=== PATIENT | male | born 1945 | race Caucasian/White ===

== ENCOUNTER → 2024-08-20 | Outpatient (CLI) | payer OTHER | LOC: M SOG 07:50 | PROVIDERS: ATTEND Orthopaedic Surgery | DX: M54.50 Low back pain, unspecified (principal); M51.369 Other intervertebral disc degeneration, lumbar region without mention of lumbar back pain or lower extremity pain ==

== ENCOUNTER → 2024-09-12 | Outpatient (CLI) | payer OTHER | LOC: M RAD 07:42 | PROVIDERS: ATTEND Orthopaedic Surgery | DX: M47.816 Spondylosis without myelopathy or radiculopathy, lumbar region (principal); M54.50 Low back pain, unspecified; M43.10 Spondylolisthesis, site unspecified ==

== ENCOUNTER → 2024-09-19 | Outpatient (CLI) | payer OTHER | LOC: M SOG 07:55 | PROVIDERS: ATTEND Physician Assistant | DX: M25.512 Pain in left shoulder (principal); Z53.9 Procedure and treatment not carried out, unspecified reason ==

== ENCOUNTER → 2024-09-25 | Outpatient (CLI) | payer OTHER | LOC: M SOG 07:56 | PROVIDERS: ATTEND Physician Assistant | DX: M25.512 Pain in left shoulder (principal) ==

== ENCOUNTER 2025-08-12 13:57 | Emergency (ER) | payer OTHER ==
[~2025-08-12] VITALS: Ht 160 cm; Wt 89.1 kg
[2025-08-12 14:09] VITALS: TEMP 97.1
[2025-08-12] MEDS ORDERED: FINA5TAB2 PO (15:00)
[2025-08-12] MEDS ORDERED: EZET10TA57 PO (15:00)
[2025-08-12] MEDS ORDERED: PARO40TA2 PO (15:00)
[2025-08-12] MEDS ORDERED: TERA10CA3 PO (15:00)
[2025-08-12] MEDS ORDERED: OMEP-173 PO (15:00)
[2025-08-12] MEDS ORDERED: PRAV40TA85 PO (15:00)
[2025-08-12] MEDS ORDERED: JARD1TAB3 PO (15:00)
[2025-08-12] MEDS ORDERED: OXYC-517 PO (15:00)
[2025-08-12] MEDS ORDERED: LISI20TA35 PO (15:00)
[2025-08-12] MEDS ORDERED: ASPI81TA26 PO (15:00)
[2025-08-12] MEDS ORDERED: GI COCKTAIL 50 ML BTL(HYOSCYAMINE/MAALOX/LIDOCAINE VISCOUS)(1:3:1) PO ONE (15:05)
[2025-08-12] MEDS ORDERED: HOME MED LIST COMPLETE! XX SCH (15:05)
[2025-08-12] MEDS: PANTOPRAZOLE 40MG VIAL IV ONE (15:30)
[2025-08-12] MEDS: ASPIRIN 81 MG CHEWABLE TABLET PO ONE (15:30)
[2025-08-12 15:37] LABS: BASO # 0.0 10^3/uL (0.0-0.2); BASO % 0.2 % (0.0-1.0); EOS # 0.1 10^3/uL (0.0-0.5); EOS % 0.5 % (0.0-3.0); LYMPH # 1.5 10^3/uL (1.5-5.0); LYMPH % 16.0 % (24.0-44.0); MONO # 0.8 10^3/uL (0.0-0.8); MONO % 8.6 % (2.0-8.0); NEUTROPHILS # 6.8 10^3/uL (1.5-8.5); NEUTROPHILS % 74.5 % (36.0-66.0); PLATELET COUNT, AUTOMATED 158 10^3/uL (150-450)
[2025-08-12 15:53] LABS: ALT/SGPT 17 U/L (7.0-40); AST/SGOT 53 U/L (<34); CALCIUM LEVEL 8.9 MG/DL (8.3-10.6); CARBON DIOXIDE LEVEL 25 MMOL/L (20-31); CHLORIDE LEVEL 102 MMOL/L (98-107); CK-MB VALUE MASS 7.6 NG/ML (<3.6); CPK CREATINE PHOSPHOKINASE 306 U/L (46-171); CREATININE FOR GFR 0.81 MG/DL (0.70-1.30); GLOMERULAR FILTRATION RATE > 90.0 (>42); MB/CK RELATIVE INDEX 2.48 (< OR =4); POTASSIUM SERUM 4.5 MMOL/L (3.5-5.1); SODIUM LEVEL 138 MMOL/L (136-145)
[2025-08-12] MEDS ORDERED: ISOVUE-370 76% 100 ML VIAL As Ordered ONE (15:56)
[2025-08-12 17:08] LABS: CK-MB VALUE MASS 7.4 NG/ML (<3.6)
[2025-08-12 17:10] LABS: CPK CREATINE PHOSPHOKINASE 281.0 U/L (46-171); MB/CK RELATIVE INDEX 2.63 (< OR =4)
[2025-08-12 17:12] VITALS: O2SAT 96
[2025-08-12 17:16] VITALS: BP 109/53
== END 2025-08-12 18:09 | disposition left against medical advice (07) ==
LOC: EDBD 13:57 → M ED 13:57
DX: R07.9 Chest pain, unspecified (principal); M43.12 Spondylolisthesis, cervical region; M50.31 Other cervical disc degeneration, high cervical region; I44.0 Atrioventricular block, first degree; E11.9 Type 2 diabetes mellitus without complications; K21.9 Gastro-esophageal reflux disease without esophagitis; I10 Essential (primary) hypertension; E78.5 Hyperlipidemia, unspecified; F43.10 Post-traumatic stress disorder, unspecified; F17.200 Nicotine dependence, unspecified, uncomplicated; Z79.82 Long term (current) use of aspirin; Z79.899 Other long term (current) drug therapy; Z53.9 Procedure and treatment not carried out, unspecified reason
CPT/HCPCS: 70450; 71045; 71275; 72125; 74177; 80048; 80076; 82550; 82553; 84484; 85025; 93005; 93041; 94760; 96374; 99285; J2470; Q9967

== ENCOUNTER 2025-08-12 18:30 | Emergency (ER) | payer OTHER ==
[~2025-08-12 18:30] MED LIST: ASPI81TA26 PO; EZET10TA57 PO; FINA5TAB2 PO; JARD1TAB3 PO; LISI20TA35 PO; OMEP-173 PO; OXYC-517 PO; PARO40TA2 PO; PRAV40TA85 PO; TERA10CA3 PO
== END 2025-08-12 18:40 | disposition left against medical advice (07) ==
LOC: M ED 18:30
DX: Z53.21 Procedure and treatment not carried out due to patient leaving prior to being seen by health care provider (principal)